=== PATIENT | male | born 1935 | race Caucasian/White ===

== ENCOUNTER 2019-12-12 12:07 | Inpatient (IN) | payer MEDICARE, OTHER ==
[~2019-12-12] VITALS: Ht 175.3 cm; Wt 72.8 kg
[2019-12-12] MEDS ORDERED: FLUO40CR TP (12:26)
[2019-12-12] MEDS ORDERED: DICLOFENAC NA 1% TOP (12:26)
[2019-12-12] MEDS ORDERED: GUAI-671 PO (12:26)
[2019-12-12] MEDS ORDERED: METF-440 PO (12:26)
[2019-12-12] MEDS ORDERED: DILTIAZEM HCL 25 MG IV ONE (12:29)
[2019-12-12] MEDS ORDERED: DILTIAZEM HCL 25 MG IV IV ONE (12:30)
[2019-12-12 12:38] LABS: BASOPHILS % (AUTO) 0.2 % (0.0-2.0); HEMATOCRIT 40.6 % (36.7-47.1); HEMOGLOBIN 13.6 g/dL (12.5-16.3); LYMPHOCYTES # (AUTO) 1.1 K/uL (20.0-40.0); LYMPHOCYTES % (AUTO) 6.9 % (20.5-51.5); MEAN CORPUSCULAR HEMOGLOBIN 32.9 uug (23.8-33.4); MEAN CORPUSCULAR HGB CONC 34 g/dL (32.5-36.3); MEAN CORPUSCULAR VOLUME 98.4 fL (73.0-96.2); MONOCYTES # (AUTO) 1.9 K/uL (2.0-10.0); NEUTROPHILS # (AUTO) 12.6 K/uL (1.8-8.9); NEUTROPHILS % (AUTO) 80.9 % (38.5-71.5); PLATELET COUNT (AUTO) 286 K/uL (152-348); RED BLOOD CELL COUNT(AUTO) 4.13 MIL/uL (4.06-5.63); WHITE BLOOD COUNT (AUTO) 15.6 K/uL (3.6-10.2)
--- NOTE | 2019-12-12 12:38 | NUR ---
PT IS IN ROOM #1B. DR MCKEON EVALUATED THE PT.
[2019-12-12 12:58] LABS: ALANINE AMINOTRANSFERASE 61 U/L (16-63); ALKALINE PHOSPHATASE 112 U/L (50-136); ASPARTATE AMINOTRANSFERASE 33 U/L (15-37); BILIRUBIN,DIRECT 0.4 mg/dL (0.0-0.2); BILIRUBIN,TOTAL 1.3 mg/dL (0.2-1.0); CARBON DIOXIDE 25 mmol/L (21-32); CHLORIDE 93 mmol/L (98-107); CREATININE 1.7 mg/dL (0.6-1.3); POTASSIUM 5.4 mmol/L (3.5-5.1); TOTAL PROTEIN, SERUM 6.8 g/dL (6.4-8.2); UREA NITROGEN, BLOOD 24 mg/dL (7-18)
[2019-12-12 12:59] LABS: GLUCOSE 466 mg/dL (74-106)
[2019-12-12] MEDS ORDERED: AMIODARONE HCL IV 900 MG in IV DEXTROSE 5% 482 ML IV PRN (14:30)
[2019-12-12] MEDS ORDERED: LORAZEPAM 2 MG/1 ML VIAL IV ONE ×3 (14:45→18:15)
[2019-12-12] MEDS ORDERED: LORAZEPAM 2 MG/1 ML VIAL ONE ×2 (14:46→18:06)
[2019-12-12] MEDS ORDERED: MEROPENEM 500 MG in IV NORMAL SALINE 100 ML IV ONE (15:15)
[2019-12-12] MEDS ORDERED: MEROPENEM 500MG/NS 50ML PB ***ER PYXIS ONLY IV ONE (15:22)
[2019-12-12 15:34] LABS: *BILIRUBIN,URIN NEGATIVE (NEGATIVE); *BLOOD, URINE 3+ (NEGATIVE); *COLOR,URINE YELLOW (YELLOW); *KETONES,URINE 1+ (NEGATIVE); *UROBILINOGEN,URINE 0.2 E.U./dl (NORMAL); NITRITE, URINE NEGATIVE (NEGATIVE); PH,URINE 5.5 (5.0-8.0); UGLUCOSE 2+ (NEGATIVE)
[2019-12-12 15:35] LABS: *CLARITY,URINE HAZY (CLEAR)
[2019-12-12 15:38] LABS: LEUKOCYTE ESTERASE ,URINE TRACE (NEGATIVE)
[2019-12-12 15:39] LABS: RBC,URINE 50-80 /HPF (0-3)
[2019-12-12 15:40] LABS: SQUAMOUS EPITHELIAL CELL,UR FEW /HPF (NONE SEEN)
--- NOTE | 2019-12-12 16:13 | NUR ---
PT's INFORMATION WAS SUBMITTED TO [facility] NURSING ATM TECHNICIAN , ACCORDING DR LINDA FALLON, TO ARRANGE PT's TRANSFER.
[2019-12-12] MEDS ORDERED: LET TOPICAL SOLUTION 8 ML UDC ONE (17:02)
[2019-12-12] MEDS ORDERED: METOPROLOL SUCCINATE XL 50 MG TAB.SR.24H PO ONE ×2 (17:15→18:17)
[2019-12-12] MEDS ORDERED: FUROSEMIDE 40 MG/4 ML VIAL IV ONE (17:15)
[2019-12-12] MEDS ORDERED: INSULIN REGULAR, HUMAN 300 UNIT/3 ML VIAL IV ONE (17:30)
[2019-12-12] MEDS ORDERED: INSULIN REGULAR, HUMAN 300 UNIT/3 ML VIAL ONE (17:38)
[2019-12-12] MEDS ORDERED: FUROSEMIDE 40 MG/4 ML VIAL ONE (18:19)
[2019-12-12] MEDS ORDERED: FUROSEMIDE 20 MG/2 ML VIAL ONE (18:19)
--- NOTE | 2019-12-12 19:10 | NUR ---
REPORT WAS GIVEN TO SENIOR DESIGN ENGINEERING SPECIALIST RN.
[2019-12-12] MEDS ORDERED: DIGOXIN 500 MCG/2 ML AMP IV ONE (19:15)
[2019-12-12] MEDS ORDERED: DIGOXIN 500 MCG/2 ML AMP ONE (19:23)
[2019-12-12] MEDS ORDERED: levoFLOXacin 750 MG/D5W 150 ML PIGGYBACK IV ONE (19:30)
--- NOTE | 2019-12-12 19:43 | NUR ---
Report given to Candace WINSTON JUANITO.
[2019-12-12] MEDS ORDERED: CYCLOBENZAPRINE HCL 10 MG TABLET PO ONE (19:45)
[2019-12-12] MEDS ORDERED: CYCLOBENZAPRINE HCL 10 MG TABLET ONE (19:45)
--- NOTE | 2019-12-12 20:00 | NUR ---
Recieved patient from ER via gurney. Patient A/O x 3 with episodes of confusion. Daughter at bedside. Oriented patient to the room. Safety initiated. half-way assessment done. No skin issues. TELE Afib at 98. O2 2L NC. Daughter had multiple questions about plan of care. Frustrated and wish to speak to a physician. Vital signs taken, stable. BRP with minimum assists. Will continue to monitor.
[2019-12-12 20:20] VITALS: BP 117/56
[2019-12-12] MEDS: BLOOD SUGAR DIAGNOSTIC 1 EACH STRIP VI SCH (21:00)
[2019-12-12] MEDS ORDERED: MAGNESIUM HYDROXIDE 30 ML LIQUID UDC PO PRN (21:00)
[2019-12-12] MEDS ORDERED: ONDANSETRON 4 MG/2 ML VIAL IV PRN (21:00)
[2019-12-12] MEDS ORDERED: ATORVASTATIN 40 MG TABLET PO SCH (21:00)
[2019-12-12] MEDS ORDERED: DEXTROSE 50% 50 ML DISP.SYRIN IV PRN (21:00)
[2019-12-12] MEDS ORDERED: ACETAMINOPHEN 325 MG TABLET PO PRN (21:00)
[2019-12-12] MEDS ORDERED: Z GUARD REMEDY PASTE 57 GM TUBE TOP PRN (21:00)
--- NOTE | 2019-12-12 22:30 | NUR ---
Jude MANAGER PRODUCT MANAGEMENT is at bedside discussing plan of care with daughter. Will closely monitor.
[2019-12-12] MEDS: INSULIN REGULAR, HUMAN 300 UNIT/3 ML VIAL SQ PRN (23:26)
[2019-12-13] MEDS ORDERED: INSULIN REGULAR, HUMAN 300 UNIT/3 ML VIAL ONE (00:08)
[2019-12-13] MEDS ORDERED: MEROPENEM 1 G VIAL IV ONE (00:08)
[2019-12-13 00:18] VITALS: BP 111/52
[2019-12-13 02:04] LABS: BASOPHILS # (AUTO) 0.1 K/uL (0.0-8.0); BASOPHILS % (AUTO) 0.5 % (0.0-2.0); EOSINOPHILS # (AUTO) 0.1 K/uL (0.0-0.7); EOSINOPHILS % (AUTO) 0.9 % (0.0-7.0); HEMATOCRIT 37.1 % (36.7-47.1); HEMOGLOBIN 12.9 g/dL (12.5-16.3); LYMPHOCYTES # (AUTO) 1.4 K/uL (20.0-40.0); LYMPHOCYTES % (AUTO) 12.1 % (20.5-51.5); MEAN CORPUSCULAR HEMOGLOBIN 33.5 uug (23.8-33.4); MEAN CORPUSCULAR HGB CONC 35 g/dL (32.5-36.3); MEAN CORPUSCULAR VOLUME 96.6 fL (73.0-96.2); MONOCYTES # (AUTO) 1.6 K/uL (2.0-10.0); MONOCYTES % (AUTO) 13.6 % (0.0-11.0); NEUTROPHILS # (AUTO) 8.6 K/uL (1.8-8.9); NEUTROPHILS % (AUTO) 72.9 % (38.5-71.5); PLATELET COUNT (AUTO) 249 K/uL (152-348); RED BLOOD CELL COUNT(AUTO) 3.85 MIL/uL (4.06-5.63); WHITE BLOOD COUNT (AUTO) 11.8 K/uL (3.6-10.2)
[2019-12-13 02:15] LABS: ALANINE AMINOTRANSFERASE 56 U/L (16-63); ALKALINE PHOSPHATASE 94 U/L (50-136); ASPARTATE AMINOTRANSFERASE 27 U/L (15-37); BILIRUBIN,TOTAL 0.9 mg/dL (0.2-1.0); CARBON DIOXIDE 30 mmol/L (21-32); CHLORIDE 98 mmol/L (98-107); CHOLESTEROL 84 mg/dL (<200); CREATININE 1.6 mg/dL (0.6-1.3); GLUCOSE 218 mg/dL (74-106); HDL CHOLESTEROL 45 mg/dL (40-60); MAGNESIUM 2.1 mg/dL (1.8-2.4); PHOSPHOROUS 2.6 mg/dL (2.5-4.9); TOTAL PROTEIN, SERUM 5.8 g/dL (6.4-8.2); TRIGLYCERIDES 46 MG/DL (30-150); UREA NITROGEN, BLOOD 24 mg/dL (7-18)
[2019-12-13] MEDS ORDERED: ACETAMINOPHEN 325 MG TABLET PO PRN (02:15)
--- NOTE | 2019-12-13 02:55 | NUR ---
Reported critical Trop 1.016 to [place]. Ordered to run it again in 4 hours. Will closely monitor.
[2019-12-13] MEDS ORDERED: MEROPENEM 1 G in IV NORMAL SALINE 100 ML IV ONE ×4 (03:00→09:00)
[2019-12-13] MEDS ORDERED: MEROPENEM 1 G in IV NORMAL SALINE 100 ML IV SCH ×5 (03:00→11:00)
[2019-12-13 04:10] VITALS: BP 101/50
--- NOTE | 2019-12-13 05:55 | NUR ---
Reported critical value to HCP Ker[place]. Trop 1.038. No new orders.
--- NOTE | 2019-12-13 05:56 | NUR ---
Patient slept t/o shift. Patient remains A/O x 3. Denies pain. On O2 3L NC.TELE Afib at 105. Patient was able to ambulate to and from the restroom with minimal assist. Good urine output. All meds given as ordered. All needs met. Safety and comfort measures maintained t/o shift.
[2019-12-13] MEDS: BLOOD SUGAR DIAGNOSTIC 1 EACH STRIP VI SCH ×3 (06:39→17:02)
[2019-12-13 08:00] VITALS: BP 121/58
--- NOTE | 2019-12-13 08:00 | NUR ---
RECEIVED PATIENT IN BED RESTING COMFORTABLY WITH O2 @ 2L, NO SIGNS OF CHEST PAIN OR ANY DISTRESS. UNCONTROLLED AFIB ON MONITOR AT 114 BPM.
[2019-12-13] MEDS ORDERED: METOPROLOL SUCCINATE XL 25 MG TAB.SR.24H PO SCH (09:00)
[2019-12-13] MEDS ORDERED: PANTOPRAZOLE SODIUM 40 MG VIAL IV SCH (09:00)
[2019-12-13] MEDS ORDERED: CLOPIDOGREL 75 MG TABLET PO SCH (09:00)
--- NOTE | 2019-12-13 09:00 | NUR ---
AM CARE GIVEN. OFF O2 FOR AN HOUR AND CHECKED SATURATION ON ROOM AIR. PATIENT SATURATING AT 93%.
[2019-12-13] MEDS ORDERED: METOPROLOL SUCCINATE XL 25 MG TAB.SR.24H PO ONE (10:00)
[2019-12-13] MEDS ORDERED: DIGOXIN 500 MCG/2 ML AMP IV ONE (10:00)
[2019-12-13] MEDS: FUROSEMIDE 40 MG/4 ML VIAL IV SCH ×2 (10:48→14:18)
[2019-12-13] MEDS: APIXABAN 5 MG TABLET PO SCH ×2 (11:02→17:03)
[2019-12-13 11:36] VITALS: BP 113/57
[2019-12-13] MEDS: INSULIN REGULAR, HUMAN 300 UNIT/3 ML VIAL SQ PRN ×2 (11:50→17:06)
[2019-12-13] MEDS ORDERED: CLOP75TA33 PO (13:44)
[2019-12-13] MEDS ORDERED: DIGO125T5 PO (13:44)
[2019-12-13] MEDS ORDERED: FURO10VI IV (13:44)
[2019-12-13 15:46] VITALS: BP 108/53
--- NOTE | 2019-12-13 17:36 | NUR ---
PATIENT WILL BE TRANSFERRED TO [facility] FOR HIGHER LEVEL OF CARE. PICK-UP TIME AT 19:30 VIA [facility].
--- NOTE | 2019-12-13 18:14 | NUR ---
REPORT GIVEN TO [facility] STAFF, MARLON.
--- NOTE | 2019-12-13 19:53 | NUR ---
[facility] PICKED UP THE PATIENT. BELONGINGS WERE RETURNED TO THE DAUGHTER AND THE PATIENT, MONITOR WAS REMOVED AND RETURNED TO THE TECH.
[2019-12-14] MEDS ORDERED: METOPROLOL SUCCINATE XL 25 MG TAB.SR.24H PO SCH (09:00)
[2019-12-14] MEDS ORDERED: METOPROLOL SUCCINATE XL 50 MG TAB.SR.24H PO SCH (09:00)
[2019-12-14] MEDS ORDERED: DIGOXIN 125 MCG TABLET PO SCH (09:00)
== END 2019-12-13 20:00 | disposition short-term general hospital (02) | DRG 280 ==
LOC: ER 12:07 → TELE-TD3 19:51
PROVIDERS: ADMIT Hospitalist; ATTEND Hospitalist
DX: I13.0 Hypertensive heart and chronic kidney disease with heart failure and stage 1 through stage 4 chronic kidney disease, or unspecified chronic kidney disease (principal); I50.23 Acute on chronic systolic (congestive) heart failure; I21.A1 Myocardial infarction type 2; N17.0 Acute kidney failure with tubular necrosis; J18.9 Pneumonia, unspecified organism; E87.1 Hypo-osmolality and hyponatremia; I48.20 Chronic atrial fibrillation, unspecified; J98.11 Atelectasis; I25.10 Atherosclerotic heart disease of native coronary artery without angina pectoris; I25.5 Ischemic cardiomyopathy; E11.65 Type 2 diabetes mellitus with hyperglycemia; E87.5 Hyperkalemia; E11.51 Type 2 diabetes mellitus with diabetic peripheral angiopathy without gangrene; E11.22 Type 2 diabetes mellitus with diabetic chronic kidney disease; N18.9 Chronic kidney disease, unspecified; Z85.51 Personal history of malignant neoplasm of bladder; Z85.118 Personal history of other malignant neoplasm of bronchus and lung; Z90.79 Acquired absence of other genital organ(s); K74.60 Unspecified cirrhosis of liver; I70.0 Atherosclerosis of aorta; R79.1 Abnormal coagulation profile; Z79.01 Long term (current) use of anticoagulants
CPT/HCPCS: 36415; 70030-TC; 71045; 83735; 84100; 84443; 85025; 85730; 87040; 87086; 93005; 93307; A4663; C9113; G0378; J0282; J1160; J1815; J1940; J2060; J2185; J3490; J7060